=== PATIENT | female | born 1990 | race Caucasian/White ===

== ENCOUNTER → 2021-09-21 | Outpatient (REF) ==
--- NOTE | 2021-09-21 09:52 | REP ---
INDICATION: SOB, STRESS FRACTURE COMPARISON: None. TECHNIQUE: PA and lateral. FINDINGS: The mediastinum and cardiac silhouette are normal. The lung severino are clear and without acute consolidation, effusion, or pneumothorax. The skeletal structures are intact and normal. IMPRESSION: No acute cardiopulmonary process. <Electronically signed by Refugio Maldonado > 09/21/21 0944
--- NOTE | 2021-09-21 09:53 | REP ---
INDICATION: SOB, STRESS FRACTURE. COMPARISON: None. TECHNIQUE: Single AP view of the pelvis FINDINGS: Osseous structures, joint spaces, and surrounding soft tissues are normal. No evidence for acute or healed injury. No abnormal sclerotic lesions or periosteal reaction appreciated. IMPRESSION: Normal pelvic radiograph. <Electronically signed by Refugio Maldonado > 09/21/21 0905
== END ==
LOC: M PLAIMG 08:46
PROVIDERS: ATTEND Internal Medicine
DX: R06.02 Shortness of breath (principal); M84.350A Stress fracture, pelvis, initial encounter for fracture